=== PATIENT | male | born 1965 | race Hispanic/Latino ===

== ENCOUNTER 2021-06-24 08:14 | Emergency (ER) | payer SELFPAY ==
[~2021-06-24] VITALS: Ht 172.7 cm; Wt 73.9 kg
[2021-06-24] MEDS ORDERED: ONDANSETRON HCL INJ 2MG/ML 2ML 2 MG/ML VIAL IV ONE (08:23)
[2021-06-24] MEDS: SODIUM CHLORIDE 0.9% 1000ML 1,000 ML IV SCH ×2 (08:40→08:41)
[2021-06-24 08:41] LABS: BASOPHILS % 0.2 % (0.0-1.0); EOSINOPHILS # (AUTO) 0.1 (0.0-0.4); EOSINOPHILS % 0.4 % (0.0-6.0); HEMATOCRIT 45.5 % (38.2-49.6); HEMOGLOBIN 15.5 g/dL (14.0-18.0); LYMPHOCYTES # (AUTO) 1.9 (1.0-3.2); LYMPHOCYTES % 15.6 % (18.0-39.1); MEAN CORPUSCULAR HEMOGLOBIN 29.2 pg (28-32); MEAN CORPUSCULAR HGB CONC 34.1 g/dL (31-35); MEAN CORPUSCULAR VOLUME 85.7 fL (81-99); MONOCYTES # (AUTO) 0.5 (0.2-0.8); NEUTROPHILS # (AUTO) 9.4 (2.1-6.9); NEUTROPHILS % 79.3 % (38.7-80.0); PLATELET COUNT 170 x10e3/uL (140-360); RED BLOOD COUNT 5.31 x10e6/uL (4.3-5.7); RED CELL DISTRIBUTION WIDTH 11.7 % (11.7-14.4)
[2021-06-24 09:01] LABS: ALBUMIN 4.6 g/dL (3.5-5.0); ALBUMIN/GLOBULIN RATIO 1.5 (0.8-2.0); ANION GAP 14.7 mmol/L (8-16); CALCIUM 9.2 mg/dL (8.4-10.2); CREATININE, SERUM 0.98 mg/dL (0.72-1.25); POTASSIUM 3.7 mmol/L (3.5-5.1)
[2021-06-24] MEDS ORDERED: METOCLOPRAMIDE HCL 10 MG/2ML VIAL IV ONE (09:45)
[2021-06-24] MEDS ORDERED: ONDANSETRON ODT4 MG PO (09:46)
[2021-06-24 10:17] VITALS: BP 140/80
== END 2021-06-24 10:26 | disposition home or self-care (01) ==
LOC: ER 08:18
DX: R11.2 Nausea with vomiting, unspecified (principal); K52.9 Noninfective gastroenteritis and colitis, unspecified; R51.9 Headache, unspecified; R42 Dizziness and giddiness; Z20.822 Contact with and (suspected) exposure to COVID-19
CPT/HCPCS: 36415; 80053; 83690; 85025; 99284; J2405; J2765; J7030; U0002

== ENCOUNTER 2024-11-05 21:37 | Inpatient (IN) | payer OTHER ==
[~2024-11-05] VITALS: Ht 172.7 cm; Wt 73.9 kg
[~2024-11-05 21:37] MED LIST: ONDANSETRON ODT4 MG PO
[2024-11-05 21:45] VITALS: TEMP 98.5
[2024-11-05 21:54] LABS: BASOPHILS % 0.2 % (0.0-1.0); EOSINOPHILS # (AUTO) 0.4 (0.0-0.4); EOSINOPHILS % 1.8 % (0.0-6.0); HEMOGLOBIN 13.6 g/dL (14.0-18.0); LYMPHOCYTES # (AUTO) 1.7 (1.0-3.2); LYMPHOCYTES % 8.8 % (18.0-39.1); MEAN CORPUSCULAR HEMOGLOBIN 29.6 pg (28-32); MEAN CORPUSCULAR VOLUME 87.1 fL (81-99); MONOCYTES # (AUTO) 1.1 (0.2-0.8); MONOCYTES % 5.5 % (4.4-11.3); NEUTROPHILS # (AUTO) 16.4 (2.1-6.9); NEUTROPHILS % 83.3 % (38.7-80.0); PLATELET COUNT 148 x10e3/uL (140-360); RED BLOOD COUNT 4.59 x10e6/uL (4.3-5.7); RED CELL DISTRIBUTION WIDTH 11.9 % (11.7-14.4); WHITE BLOOD COUNT 19.68 x10e3/uL (4.8-10.8)
[2024-11-05 22:08] LABS: INR 0.9; PARTIAL THROMBOPLASTIN TIME 28.7 seconds (23.8-35.5); PROTHROMBIN TIME 12.7 seconds (11.9-14.5)
[2024-11-05 22:18] LABS: ALBUMIN 4.3 g/dL (3.5-5.0); ALBUMIN/GLOBULIN RATIO 1.6 (0.8-2.0); ANION GAP 15.9 mmol/L (8-16); BILIRUBIN,TOTAL 1.3 mg/dL (0.2-1.2); CALCIUM 9.2 mg/dL (8.4-10.2); CREATININE, SERUM 0.94 mg/dL (0.72-1.25); POTASSIUM 3.9 mmol/L (3.5-5.1)
[2024-11-05 22:23] LABS: BILIRUBIN,URINE NEGATIVE (NEGATIVE); CLARITY,URINE CLEAR (CLEAR); COLOR,URINE YELLOW (YELLOW); GLUCOSE, URINE NEGATIVE (NEGATIVE); KETONES,URINE 1+ (NEGATIVE); LEUKOCYTE ESTERASE ,URINE TRACE (NEGATIVE); NITRITE,URINE NEGATIVE (NEGATIVE); PH,URINE 6 (5 - 7); PROTEIN,URINE DIPSTICK NEGATIVE (NEGATIVE); URINE UROBILINOGEN 0.2 mg/dL (0.2 - 1)
[2024-11-05] MEDS ORDERED: IOPAMIDOL 370 MG/ML 100 ML INFUS..BTL INJ ONE (22:27)
[2024-11-05] MEDS ORDERED: SODIUM CHLORIDE 0.9% 100 ML ONE (22:27)
[2024-11-05 22:33] LABS: BACTERIA,URINE FEW /HPF; EPITHELIAL CELLS,URINE FEW /LPF
[2024-11-05 22:34] LABS: MUCUS,URINE FEW
[2024-11-06] VITALS (12 sets, daily range): BP systolic 122–139; BP diastolic 75–82; PULSE 77–90; RESP 16–18; TEMP 98.1–98.9; O2SAT 96–100
[2024-11-06] MEDS ORDERED: SODIUM CHLORIDE 0.9% 1000ML 1,000 ML ONE (01:40)
[2024-11-06] MEDS ORDERED: ACETAMINOPHEN 325 MG TAB PO PRN (01:45)
[2024-11-06] MEDS: Morphine 4mg INJECTION 4 MG/ML INJ IV PRN (02:00)
[2024-11-06] MEDS: ONDANSETRON HCL INJ 2MG/ML 2ML 2 MG/ML VIAL IV PRN (02:00)
[2024-11-06] MEDS: SODIUM CHLORIDE 0.9% 1000ML 1,000 ML IV SCH (02:00)
[2024-11-06] MEDS: METRONIDAZOLE 500MG/NS 100ML 100 ML IV SCH (05:55)
[2024-11-06] MEDS ORDERED: SIMETHICONE 80 MG CHEW PO PRN (09:30)
[2024-11-06] MEDS ORDERED: MELATONIN 3 MG TAB PO PRN (09:30)
[2024-11-06] MEDS ORDERED: ALBUTEROL/IPRATROPIUM 3 ML NEB NEB PRN (09:30)
[2024-11-06] MEDS ORDERED: DOCUSATE SODIUM 100 MG CAP PO PRN (09:30)
[2024-11-06] MEDS ORDERED: METOPROLOL TARTRATE INJ 1 MG/ML VIAL IV PRN (09:30)
[2024-11-06 11:06] LABS: CHOL/HDL RATIO 4.1 (3.9-4.7)
[2024-11-06] MEDS: BISACODYL 5 MG TAB EC PO ONE ×3 (13:00→19:04)
[2024-11-06] MEDS: CITRATE OF MAGNESIA 300ML BOTTLE PO ONE (23:10)
[2024-11-07] VITALS (7 sets, daily range): BP systolic 110–129; BP diastolic 70–82; PULSE 71–91; RESP 16–20; TEMP 98.2–98.7; O2SAT 95–100
[2024-11-07] MEDS: CITRATE OF MAGNESIA 300ML BOTTLE PO ONE (05:30)
[2024-11-07 07:21] LABS: POTASSIUM 3.9 mmol/L (3.5-5.1)
[2024-11-07 07:22] LABS: ANION GAP 11.9 mmol/L (8-16)
[2024-11-07 07:24] LABS: BLOOD UREA NITROGEN 9.57 mg/dL (7-26); CREATININE, SERUM 0.94 mg/dL (0.72-1.25)
[2024-11-07 07:25] LABS: ALBUMIN 3.7 g/dL (3.5-5.0); ALBUMIN/GLOBULIN RATIO 1.2 (0.8-2.0); BILIRUBIN,TOTAL 1.1 mg/dL (0.2-1.2); CALCIUM 8.7 mg/dL (8.4-10.2); TOTAL PROTEIN 6.8 g/dL (6.5-8.1)
[2024-11-07 07:38] LABS: HEMATOCRIT 39.7 % (38.2-49.6); HEMOGLOBIN 13.5 g/dL (14.0-18.0); MEAN CORPUSCULAR VOLUME 88.2 fL (81-99); WHITE BLOOD COUNT 17.82 x10e3/uL (4.8-10.8)
[2024-11-07 07:39] LABS: BASOPHILS % 0.2 % (0.0-1.0); EOSINOPHILS # (AUTO) 0.1 (0.0-0.4); EOSINOPHILS % 0.7 % (0.0-6.0); LYMPHOCYTES # (AUTO) 2.1 (1.0-3.2); LYMPHOCYTES % 11.6 % (18.0-39.1); MONOCYTES # (AUTO) 0.8 (0.2-0.8); MONOCYTES % 4.5 % (4.4-11.3); NEUTROPHILS # (AUTO) 14.7 (2.1-6.9); NEUTROPHILS % 82.5 % (38.7-80.0); PLATELET COUNT 186 x10e3/uL (140-360); RED CELL DISTRIBUTION WIDTH 12.1 % (11.7-14.4)
[2024-11-07] MEDS: SENNOSIDES 8.6 MG TAB PO SCH (09:15)
[2024-11-07] MEDS ORDERED: PROPOFOL IV EMULSION 50 ML IV ONE (12:21)
[2024-11-07] MEDS ORDERED: LIDOCAINE HCL 2% LOCAL INJ 5 ML SDV VIAL INJ ONE (12:21)
[2024-11-07] MEDS ORDERED: METOCLOPRAMIDE HCL 10 MG/2ML VIAL ONE (14:18)
[2024-11-07] MEDS ORDERED: FAMOTIDINE 20 MG/2 ML VIAL IV ONE (14:18)
[2024-11-07] MEDS: MESALAMINE 1,000 MG SUPP RC SCH (20:55)
[2024-11-08] VITALS (10 sets, daily range): BP systolic 110–129; BP diastolic 69–83; PULSE 55–84; RESP 16–20; TEMP 97.3–98.5; O2SAT 96–100
[2024-11-08 07:49] LABS: ANION GAP 12.6 mmol/L (8-16); CALCIUM 8.5 mg/dL (8.4-10.2); CREATININE, SERUM 0.96 mg/dL (0.72-1.25); POTASSIUM 3.6 mmol/L (3.5-5.1)
[2024-11-08] MEDS ORDERED: NITROFURANTOIN100 MG PO (16:47)
[2024-11-09] VITALS (11 sets, daily range): BP systolic 120–135; BP diastolic 75–85; PULSE 57–76; RESP 16–20; TEMP 97.6–98.2; O2SAT 97–100
[2024-11-09 11:21] LABS: BASOPHILS % 0.3 % (0.0-1.0); EOSINOPHILS # (AUTO) 0.1 (0.0-0.4); EOSINOPHILS % 1.5 % (0.0-6.0); HEMATOCRIT 35.7 % (38.2-49.6); HEMOGLOBIN 12.2 g/dL (14.0-18.0); LYMPHOCYTES # (AUTO) 2.1 (1.0-3.2); LYMPHOCYTES % 22.2 % (18.0-39.1); MEAN CORPUSCULAR HEMOGLOBIN 29.7 pg (28-32); MEAN CORPUSCULAR HGB CONC 34.2 g/dL (31-35); MEAN CORPUSCULAR VOLUME 86.9 fL (81-99); MONOCYTES # (AUTO) 0.5 (0.2-0.8); MONOCYTES % 5.5 % (4.4-11.3); NEUTROPHILS # (AUTO) 6.6 (2.1-6.9); NEUTROPHILS % 70.4 % (38.7-80.0); PLATELET COUNT 168 x10e3/uL (140-360); RED BLOOD COUNT 4.11 x10e6/uL (4.3-5.7); RED CELL DISTRIBUTION WIDTH 11.8 % (11.7-14.4); WHITE BLOOD COUNT 9.39 x10e3/uL (4.8-10.8)
[2024-11-09 11:36] LABS: ANION GAP 10.2 mmol/L (8-16); CALCIUM 8.3 mg/dL (8.4-10.2); CREATININE, SERUM 0.86 mg/dL (0.72-1.25)
[2024-11-09 11:37] LABS: POTASSIUM 3.2 mmol/L (3.5-5.1)
[2024-11-10] VITALS: BP 105/65; PULSE 55; RESP 17; TEMP 97.2; O2SAT 98
[2024-11-10 04:00] VITALS: BP 118/64; PULSE 67; RESP 18; TEMP 98.3; O2SAT 100
[2024-11-10 04:05] VITALS: BP 118/64; PULSE 67; RESP 18; TEMP 98.3; O2SAT 100
[2024-11-10 05:59] LABS: BASOPHILS % 0.3 % (0.0-1.0); EOSINOPHILS # (AUTO) 0.3 (0.0-0.4); EOSINOPHILS % 3.5 % (0.0-6.0); HEMATOCRIT 34.5 % (38.2-49.6); HEMOGLOBIN 11.9 g/dL (14.0-18.0); LYMPHOCYTES # (AUTO) 2.6 (1.0-3.2); LYMPHOCYTES % 33.1 % (18.0-39.1); MEAN CORPUSCULAR HEMOGLOBIN 29.8 pg (28-32); MEAN CORPUSCULAR HGB CONC 34.5 g/dL (31-35); MEAN CORPUSCULAR VOLUME 86.3 fL (81-99); MONOCYTES # (AUTO) 0.5 (0.2-0.8); MONOCYTES % 5.9 % (4.4-11.3); NEUTROPHILS # (AUTO) 4.4 (2.1-6.9); NEUTROPHILS % 56.9 % (38.7-80.0); PLATELET COUNT 174 x10e3/uL (140-360); RED CELL DISTRIBUTION WIDTH 11.9 % (11.7-14.4); WHITE BLOOD COUNT 7.76 x10e3/uL (4.8-10.8)
[2024-11-10 06:25] LABS: ANION GAP 9.3 mmol/L (8-16); CALCIUM 8.2 mg/dL (8.4-10.2); CREATININE, SERUM 0.88 mg/dL (0.72-1.25); POTASSIUM 3.3 mmol/L (3.5-5.1)
[2024-11-10 08:00] VITALS: BP 117/73; PULSE 62; RESP 18; TEMP 98; O2SAT 100
[2024-11-10] MEDS ORDERED: ONDANSETRON ODT4 MG PO (08:07)
[2024-11-10] MEDS ORDERED: SIMETHICONE80 MG PO (08:07)
[2024-11-10] MEDS ORDERED: CANASA1000 MG RC (08:07)
[2024-11-10] MEDS ORDERED: Docusate Sodium PO (08:07)
[2024-11-10] MEDS ORDERED: SENOKOT8.6 MG PO (08:07)
[2024-11-10] MEDS ORDERED: CEPHALEXIN500 MG PO (08:07)
[2024-11-10] MEDS ORDERED: METRONIDAZOLE500 MG PO (08:07)
[2024-11-10] MEDS ORDERED: DOCUSATE SODIU100 MG PO (08:08)
== END 2024-11-10 09:10 | disposition home or self-care (01) | DRG 385 ==
LOC: ER 21:47 → ERHOLD 11-06 01:34 → MED/SURG3 11-06 02:37
PROVIDERS: ADMIT Internal Medicine; ATTEND Internal Medicine
PROC: 0DBL8ZX Excision of Transverse Colon, Via Natural or Artificial Opening Endoscopic, Diagnostic (ICD-10-PCS; 2024-11-07)
PROC: 0DBL8ZZ Excision of Transverse Colon, Via Natural or Artificial Opening Endoscopic (ICD-10-PCS; principal; 2024-11-07 15:15)
PROC: 0DBP8ZZ Excision of Rectum, Via Natural or Artificial Opening Endoscopic (ICD-10-PCS; 2024-11-07 15:15)
PROC: 0DBN8ZZ Excision of Sigmoid Colon, Via Natural or Artificial Opening Endoscopic (ICD-10-PCS; 2024-11-07 15:15)
DX: K51.211 Ulcerative (chronic) proctitis with rectal bleeding (principal); K55.031 Focal (segmental) acute (reversible) ischemia of large intestine; N39.0 Urinary tract infection, site not specified; R31.29 Other microscopic hematuria; K64.8 Other hemorrhoids; D12.8 Benign neoplasm of rectum; D12.3 Benign neoplasm of transverse colon; K63.5 Polyp of colon; K57.30 Diverticulosis of large intestine without perforation or abscess without bleeding; K59.09 Other constipation; N40.0 Benign prostatic hyperplasia without lower urinary tract symptoms; N41.1 Chronic prostatitis; K59.00 Constipation, unspecified; D64.9 Anemia, unspecified; R73.9 Hyperglycemia, unspecified; Z13.1 Encounter for screening for diabetes mellitus; Z79.899 Other long term (current) drug therapy
CPT/HCPCS: 36415; 45378; 45380; 45385; 74174; 80048; 80053; 80061; 81001; 83036; 83690; 85025; 85610; 85730; 87086; 88305; 94799; 99284; J2003; J2270; J2405; J2470; J2543; J2765; J7030; J7050; Q9967